=== PATIENT | female | born 1985 | race Caucasian/White ===

== ENCOUNTER 2018-10-04 08:40 | Emergency (ER) | payer OTHER ==
[~2018-10-04] VITALS: Ht 154.9 cm; Wt 56.7 kg
--- NOTE | 2018-10-04 08:50 | NUR ---
BIB MOTHER 33 YEAR OLD FEMALE C/O RIGHT WRIST LACERATION FROM A BROKEN GLASS WINDOW. ALERT AND ORIENTED X4, BREATHING EVEN AND UNLABORED. DENIES ANY PAIN AT THIS TIME. SKIN INTACT AND WARM TO TOUCH. AWAITING TO BE SEEN BY
[2018-10-04] MEDS ORDERED: TDAP [DIPH/PERTUSSIS/TET] 0.5 ML VIAL IM ONE (09:13)
[2018-10-04] MEDS ORDERED: LIDOCAINE HCL/PF 1% 30 ML SDV ONE (09:13)
[2018-10-04] MEDS: TDAP [DIPH/PERTUSSIS/TET] 0.5 ML VIAL IM ONE (09:18)
[2018-10-04] MEDS: LIDOCAINE 1%-EPI 1:100,000 20 ML VIAL TP ONE (09:28)
[2018-10-04 09:50] VITALS: BP 118/66
--- NOTE | 2018-10-04 09:51 | NUR ---
Patient discharged to home in stable condition. Written and verbal after care instructions given. Patient verbalizes understanding of instruction.
== END 2018-10-04 09:51 | disposition home or self-care (01) ==
LOC: ER 08:40
DX: S61.411A Laceration without foreign body of right hand, initial encounter (principal); W25.XXXA Contact with sharp glass, initial encounter; Y93.89 Activity, other specified; Y92.89 Other specified places as the place of occurrence of the external cause; Y99.8 Other external cause status
CPT/HCPCS: 12002; 90471; 90715; 99283; J3490